=== PATIENT | male | born 2000 | race Caucasian/White ===

== ENCOUNTER 2020-02-05 09:41 | Emergency (ER) | payer BC, OTHER ==
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
[2020-02-05] MEDS ORDERED: SODIUM CHLORIDE 0.9% (FLUSH) 10 ML SYG IV PRN (10:13)
[2020-02-05] MEDS ORDERED: KETOROLAC TROMETHAMINE INJ 30 MG/ML VIAL IV ONE (10:15)
[2020-02-05] MEDS ORDERED: SODIUM CHLORIDE 0.9% 1000ML 1,000 ML IVS ONE (10:15)
[2020-02-05] MEDS ORDERED: ONDANSETRON INJ 4 MG/2 ML VIAL IV ONE (10:15)
[2020-02-05 11:01] VITALS: O2SAT 97
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
[2020-02-05] MEDS ORDERED: NEOMYCIN-BACITRACIN-POLYMYXIN 0.9 GM UD TOP ONE (13:05)
[2020-02-05 14:20] VITALS: BP 127/80; TEMP 97.5
== END 2020-02-05 13:19 | disposition home or self-care (01) ==
LOC: ER 09:41
DX: S01.302A Unspecified open wound of left ear, initial encounter (principal); S06.0X0A Concussion without loss of consciousness, initial encounter; R07.89 Other chest pain; D72.829 Elevated white blood cell count, unspecified; R11.0 Nausea; M79.641 Pain in right hand; S50.312A Abrasion of left elbow, initial encounter; S50.311A Abrasion of right elbow, initial encounter; S80.212A Abrasion, left knee, initial encounter; S80.211A Abrasion, right knee, initial encounter; R42 Dizziness and giddiness; Y04.0XXA Assault by unarmed brawl or fight, initial encounter; Y92.9 Unspecified place or not applicable
CPT/HCPCS: 36415; 70450; 70486; 71045; 72125; 73130; 80053; 83880; 85025; 85610; 85730; 93005; A4216; J1885; J2405; J7030